=== PATIENT | male | born 2005 | race Caucasian/White ===

== ENCOUNTER 2025-04-17 16:32 | Emergency (ER) | payer SELFPAY ==
[2025-04-17 16:48] VITALS: BP 163/99; PULSE 78; RESP 16; TEMP 36.9; O2SAT 100
--- NOTE | 2025-04-17 17:52 | PC.NURSE ---
mother up to intake desk, requesting wait time - explained no wait times are given
--- NOTE | 2025-04-17 18:43 | PC.NURSE ---
called pt twice from waiting room, no answer
== END 2025-04-17 22:51 | disposition left against medical advice (07) ==
LOC: ANHED 21:16
PROVIDERS: PCP Family Medicine
DX: R20.2 Paresthesia of skin (principal)
CPT/HCPCS: 99199